=== PATIENT | female | born 2005 | race Caucasian/White ===

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

== ENCOUNTER 2023-04-10 06:28 | Emergency (ER) | payer OTHER ==
[~2023-04-10] VITALS: Ht 172.7 cm; Wt 68.2 kg
[~2023-04-10 06:28] MED LIST: OMEG-136 PO
[2023-04-10 06:34] VITALS: BP 118/79; PULSE 86; RESP 16; TEMP 97.9
[2023-04-10 06:55] LABS: COVID AG,FIA SOURCE NASAL SWAB
[2023-04-10 07:28] LABS: SARS-COV2 (COVID) ANTIGEN,FIA Negative (Negative)
[2023-04-10 07:29] LABS: INFLUENZA TYPE A NEGATIVE FOR TYPE A (NEGATIVE); INFLUENZA TYPE B NEGATIVE FOR TYPE B (NEGATIVE)
[2023-04-10 07:40] LABS: RAPID GROUP A STREP NEGATIVE (NEGATIVE)
== END 2023-04-10 08:14 | disposition home or self-care (01) ==
LOC: EMS 06:28
DX: J02.9 Acute pharyngitis, unspecified (principal); Z20.822 Contact with and (suspected) exposure to COVID-19
CPT/HCPCS: 87430; 87804; 99283

== ENCOUNTER 2023-04-19 12:42 | Emergency (ER) | payer OTHER ==
[~2023-04-19] VITALS: Ht 172.7 cm; Wt 68.0 kg
[2023-04-19 13:14] VITALS: TEMP 97.1
[2023-04-19] MEDS: KETOROLAC TROMETHAMINE 30 MG/ML VIAL IM ONE (14:20)
[2023-04-19] MEDS: LIDOCAINE 5% TRANSDERMAL PATCH TD ONE (14:21)
[2023-04-19 14:43] VITALS: BP 111/70; PULSE 68; RESP 16
== END 2023-04-19 14:58 | disposition still patient (30) ==
LOC: EMS 12:42
DX: M62.838 Other muscle spasm (principal)
CPT/HCPCS: 99283; 96372; J1885

== ENCOUNTER 2023-05-16 14:23 | Emergency (ER) | payer OTHER ==
[~2023-05-16] VITALS: Ht 170.2 cm; Wt 65.9 kg
[2023-05-16 14:26] VITALS: TEMP 98.2
[2023-05-16 16:22] VITALS: BP 112/67; PULSE 69; RESP 16
== END 2023-05-16 16:23 | disposition home or self-care (01) ==
LOC: EMS 14:23
DX: S69.91XA Unspecified injury of right wrist, hand and finger(s), initial encounter (principal); X58.XXXA Exposure to other specified factors, initial encounter; Y93.89 Activity, other specified; Y92.89 Other specified places as the place of occurrence of the external cause; Y99.8 Other external cause status
CPT/HCPCS: 99283